=== PATIENT | female | born 2005 | race Caucasian/White ===

== ENCOUNTER 2024-03-18 04:08 | Emergency (ER) | payer BC, SELFPAY ==
[2024-03-18 04:22] VITALS: BP 148/103
--- NOTE | 2024-03-18 04:45 | ED.GENMED ---
History of Present Illness
General
Chief Complaint: Anxiety
Source: patient
Exam Limitations: none
Time Seen by Provider: 03/18/24 04:30
Nursing documentation reviewed up to this point in time: agreed with
Travel History
Have you had any contact with someone who has COVID-19?: No
Do you have any symptoms of coronavirus? Fever > 100 degrees, chills, cough, shortness of breath, sore throat, loss of taste or smell, muscle aches, or headache?: No
History of Present Illness
History of Present Illness:
Patient with history of anxiety disorder, presents to ED secondary to sudden onset of 'anxiety', associated with chest palpitations, hyperventilation, and tingling sensation, when she woke up from sleep this morning. Of note, patient does report
going out with her friends and consuming alcohol along with 'caffeinated drinks'. Patient returned home approximately 4 hours afterwards, without any complaints and she was able to fall asleep without any symptoms. In ED, patient states that her
symptoms have improved since she woke up this morning. Patient denies chest pain. Denies diaphoresis. Denies nausea or vomiting. Denies abdominal pain.
Review of Systems
Review of Systems
Allergies reviewed?: Yes
All Other Systems: ROS reviewed and negative except as documented in HPI and ROS
Constitutional: Reports no symptoms
EENT: Reports no symptoms
Respiratory: Reports trouble breathing
Cardiac: Reports palpitations; Denies chest pain
ABD/GI: Reports no symptoms
Musculoskeletal: Reports no symptoms
Skin: Reports no symptoms
Neurological: Reports numbness
Psychiatric: Reports anxiety
Phy Exam
Physical Exam
Physical Exam:
Physical Exam
General: no apparent distress, not acutely ill. afebrile
Head: nc/at. eomi
Neck: supple. normal range of motion
Heart: tachycardic, no murmur. equal radial pulses.
Lungs: no acute respiratory distress. clear bilaterally
Abdomen: normal bowel sounds. not tender.
Neuro: alert and oriented. no focal neurological deficits
Skin: no rash
Psychiatric: well kept. interactive and cooperative
Extremities: no edema. no calf tenderness.
Course
Orders/Labs/Results
Orders:
Orders
03/18/24 04:44
Electrocardiogram (*1) Urgent
Reason for Study: Tachycardia
EKG- Treatment ONCE
Vital Signs
Initial and Last Documented VS:
Initial Vital Signs
Temp Pulse Resp BP Pulse Ox
98.8 F 116 24 148/103 100
03/18/24 04:22 03/18/24 04:22 03/18/24 04:22 03/18/24 04:22 03/18/24 04:22
Last Documented Vital Signs
Temp Pulse Resp BP Pulse Ox
98.8 F 116 24 148/103 100
03/18/24 04:22 03/18/24 04:22 03/18/24 04:22 03/18/24 04:22 03/18/24 04:22
MDM/Problems Addressed
MDM/Problems Addressed:
Pt with likely an acute episode of palpitations, likely secondary to consumption of alcohol with Red Bull, worsening by underlying anxiety. Since waking up, patient states that she feels much improved and now knowing that her symptoms are likely
secondary to what she consumed, she feels comfortable going home at this time, without any further workup.
*EKG
Interpreted by ED Provider?: Yes
EKG Intrepretation Time: 04:59
Heart Rate: 118
Rate: tachycardiac
Rhythm: sinus
[place]: normal axis
Interval: normal interval
QRS Pattern: normal QRS
*Critical Care Note
Total Time (30-74mins, 75-104mins- exclusive of procedures): Not Applicable
ED Attending Note
-
Portions of this chart may have been created with voice recognition software.� Occasional wrong word or��sound alike� substitutions may have occurred due to the inherent limitations of voice recognition software.
Discharge Plan
Departure
Patient Disposition: Home (Routine Discharge)
Date of Disposition: 03/18/24
Time of Disposition: 05:20
Patient with high blood pressure during this ER visit?: Yes
Discharge Problem:
Heart palpitations
Instructions: Heart Palpitations
Referrals:
NONE,* [Family Provider] -
Activity Restrictions/Additional Instructions:
As discussed, please follow-up with your primary care physician with any further concerns.
Interventions
Interventions:
*Risk Screen - Suicide Last Done: 03/18/24 04:22
*Neglect/Abuse Screening Last Done: 03/18/24 04:22
ED- Fall Risk Assessment Last Done: 03/18/24 04:22
*ED COVID-19 Vaccine History Last Done: 03/18/24 04:22
*Nursing Disposition Last Done: 03/18/24 05:24
ED-Psychological Assessment Last Done: 03/18/24 05:06
Discharge Date and Time
Discharge Date/Time: 03/18/24 05:24
Print Language: ARMENIAN
== END 2024-03-18 05:24 | disposition home or self-care (01) ==
LOC: EMR 04:08
PROVIDERS: EMERGENCY PHYSICIAN Emergency Medicine
DX: R00.2 Palpitations (principal); R06.4 Hyperventilation; R20.2 Paresthesia of skin; F41.9 Anxiety disorder, unspecified; R03.0 Elevated blood-pressure reading, without diagnosis of hypertension
CPT/HCPCS: 99283; 93005